=== PATIENT | female | born 1950 | race Caucasian/White ===

== ENCOUNTER → 2018-02-02 09:23 | Outpatient (CLI) | payer MEDICARE, OTHER, SELFPAY ==
--- NOTE | 2018-02-02 | DI.MG.S_ITS ---
BILATERAL DIGITAL SCREENING MAMMOGRAM 3D/2D WITH CAD: 02/02/2018 CLINICAL: Routine screening. Comparison is made to exams dated: 01/31/2017 mammogram, 01/27/2016 mammogram, and 01/21/2015 mammogram - [facility]. The tissue of both breasts is extremely dense, which lowers the sensitivity of mammography. Current study was also evaluated with a Computer Aided Detection (CAD) system. No significant masses, calcifications, or other findings are seen in either breast. There has been no significant interval change. IMPRESSION: NEGATIVE There is no mammographic evidence of malignancy. A 1 year screening mammogram is recommended.(02/03/2019) This exam was interpreted at Station ID: [id number]. NOTE: For mammograms, a report in lay terms will be sent to the patient. Approximately 15% of breast malignancies will not be visualized mammographically. In the management of a palpable breast mass, a negative mammogram must not discourage biopsy of a clinically suspicious lesion. Electronically Signed By: Vikram mace/sukhwinder:02/02/2018 10:42:12 letter sent: Normal Exam ACR BI-RADS Category 1: Negative 3341F
== END ==
PROVIDERS: PCP Family Medicine; Visit Provider Family Medicine
DX: Z12.31 Encounter for screening mammogram for malignant neoplasm of breast (principal); M85.852 Other specified disorders of bone density and structure, left thigh; Z78.0 Asymptomatic menopausal state; Z82.62 Family history of osteoporosis
CPT/HCPCS: 77063; 77067; 77080

== ENCOUNTER → 2018-06-15 11:45 | Outpatient (CLI) | payer MEDICARE, OTHER, SELFPAY | PROVIDERS: PCP Family Medicine; Visit Provider Surgery | DX: Z01.818 Encounter for other preprocedural examination (principal) | CPT/HCPCS: 93005 ==

== ENCOUNTER 2018-06-26 06:32 | Day surgery (SDC) | payer MEDICARE, OTHER, SELFPAY ==
--- NOTE | 2018-06-26 | PATH_ITS ---
[facility] Accession Number: [id number] . 01 Material submitted: . PART A: TRANSVERSE COLON POLYP AT 90CM PART B: RECTAL POLYP . 02 Diagnosis: A. Biopsy, Polyp Transverse Colon at 90 cm: Tubular adenoma involving both biopsy fragments. . B. Biopsy, Rectal Polyp: Hyperplastic polyp. MRV/06/27/2018 . 02 Electronically signed: . Archie Bonner MD, Pathologist NPI- [id number] . 01 Gross description: . Received two formalin-filled containers, both labeled with the patient's name: . A. In a container labeled transverse colon polyp at 90 cm, the specimen consists of two 0.3-0.4 cm portions of tissue, entirely submitted in cassette A. B. In a container labeled rectal polyp, the specimen consists of a 0.3 cm portion of tissue, entirely submitted in cassette B. ([id number]) /FRR . 02 Pathologist provided ICD-10: D12.3 . 02 CPT . 880880, 851035 Performed at: 01 [facility] [address] [facility], [place], [place] [id number] MD Vikram Araya MD Phone: [phone] Performed at: 02 [facility] [address] [place], [place] [id number] MD Melisa Rosario MD Phone: [phone]
[2018-06-26 07:09] VITALS: BP 133/80; PULSE 90; RESP 15; TEMP 36.6; O2SAT 99; BMI 50.1
[2018-06-26] MEDS: SODIUM CHLORIDE 0.9% 1,000 ML 200 ML IV (07:30)
--- NOTE | 2018-06-26 07:38 | PM.PREOP ---
Pre-operative Note Interval Note History & Physical reviewed/Exam performed by Physician: Yes Changes to H&P: No H&P completed within 30 days and has changed as indicated here:: Patient seen and examined. History and physical examination from June 14, 2018 is on the chart and has not changed. Proceed with colonoscopy and possible hemorrhoid banding today as planned. ASA Class (for procedural sedation): II
[2018-06-26] MEDS: SODIUM CHLORIDE 0.9% 1,000 ML 42 ML IV (08:20)
[2018-06-26] MEDS: fentaNYL 250 MCG/5 ML INJ IV (08:21)
[2018-06-26] MEDS: MIDAZOLAM 5 MG/5 ML VIAL IV (08:21)
--- NOTE | 2018-06-26 08:24 | PM.OP.ENDO ---
Operative Date/Time/Diagnoses Date of procedure: 06/26/18 Time of procedure: 08:24 Pre-op diagnosis: Rectal bleeding Post-op diagnosis: other (Scattered diverticulosis, colon polyps, and grade 2 enlarged internal hemorrhoid) Procedure & Clinicians Study performed: 1. Sedation per surgeon 2. Colonoscopy with cold forceps polypectomies 3. Anoscopy with internal hemorrhoid banding of 1 cushion Same procedure as scheduled: Yes Indications: 68-year-old female who presented with recent rectal bleeding. Colonoscopy and potential hemorrhoid banding was recommended. Surgeon: Maximiliano Moncada Procedure Notes SCOAP/Timeout: Yes Procedure in detail: After obtaining informed consent, the patient was brought to the GI suite and placed in the left lateral decubitus position on the examination table. After placement of appropriate monitors, the patient was given incremental doses of Versed and Fentanyl until an appropriate level of sedation was achieved. A time out was held per SCOAP protocol. A digital rectal examination was performed and did not reveal any masses or obstructing lesions. The colonoscope was gently passed into the patient's anus and the entire colon navigated to the level of the cecum with minimal difficulty. Once in the cecum, the scope was withdrawn being sure to go before and beyond all mucosal folds and prominences and get an excellent examination. The findings are noted above. At the level of the rectal vault, the scope was retroflexed and the internal anal canal was examined. The scope was straightened and air aspirated from the colon. The instrument was removed from the patient's body and this portion of the procedure was concluded. Anoscope was then inserted and the anal canal was examined circumferentially. A grade 2 enlarged mildly inflamed right anterior internal hemorrhoid cushion was identified. Therefore the hemorrhoid was secured with the curved Allis clamp and 2 bands were deployed without difficulty. Hemostasis was verified. Patient tolerated the procedure well. The patient was allowed to awaken from sedation without difficulty and taken to the post-anesthesia care unit in good condition. Scope withdrawal time: 14:38 min Sedation minutes: 44 Findings: diverticulosis, internal hemorrhoids (See above), polyp and other findings (Extremely redundant and tortuous colon but excellent bowel preparation) Specimen(s): other (1. Transverse colon polyp at 90 cm 2. Rectal polyp) Complications: none Recommendations: Colonscopy in 5 years, High fiber diet and Will call with biopsy results Follow up: weeks (2-[address] Moncada) Disposition: PACU
[2018-06-26 08:27] VITALS: BP 105/61; PULSE 75; RESP 16; TEMP 37.1; O2SAT 97
[2018-06-26 08:31] VITALS: BP 120/67; PULSE 76; RESP 15; TEMP 36.9; O2SAT 98
[2018-06-26 08:35] VITALS: BP 116/69; PULSE 76; RESP 15; TEMP 36.8; O2SAT 98
== END 2018-06-26 08:52 | disposition home or self-care (01) ==
PROVIDERS: PCP Family Medicine; Visit Provider Surgery
PROC: 0DJD8ZZ Inspection of Lower Intestinal Tract, Via Natural or Artificial Opening Endoscopic (ICD-10-PCS; CPT 45378; principal; 2018-06-26 07:45)
DX: K62.5 Hemorrhage of anus and rectum (principal); E78.5 Hyperlipidemia, unspecified; D12.3 Benign neoplasm of transverse colon; K62.1 Rectal polyp; K57.30 Diverticulosis of large intestine without perforation or abscess without bleeding; K64.1 Second degree hemorrhoids
CPT/HCPCS: 45380; 46221; 88305; 99152; 99153; J2250; J3010

== ENCOUNTER → 2019-02-05 10:37 | Outpatient (CLI) | payer MEDICARE, OTHER, SELFPAY ==
--- NOTE | 2019-02-05 | DI.MG.S_ITS ---
BILATERAL DIGITAL SCREENING MAMMOGRAM 3D/2D WITH CAD: 02/05/2019 CLINICAL: Routine screening. Comparison is made to exams dated: 02/02/2018 mammogram, 01/31/2017 mammogram, and 01/27/2016 mammogram - [facility]. The tissue of both breasts is heterogeneously dense. This may lower the sensitivity of mammography. Current study was also evaluated with a Computer Aided Detection (CAD) system. No significant masses, calcifications, or other findings are seen in either breast. There has been no significant interval change. IMPRESSION: NEGATIVE There is no mammographic evidence of malignancy. A 1 year screening mammogram is recommended. This exam was interpreted at Station ID: [id number]. NOTE: For mammograms, a report in lay terms will be sent to the patient. Approximately 15% of breast malignancies will not be visualized mammographically. In the management of a palpable breast mass, a negative mammogram must not discourage biopsy of a clinically suspicious lesion. Electronically Signed By: Chet atkinson/sukhwinder:02/05/2019 11:35:28 letter sent: Normal Exam ACR BI-RADS Category 1: Negative 3341F
== END ==
PROVIDERS: PCP Family Medicine; Visit Provider Family Medicine
DX: Z12.31 Encounter for screening mammogram for malignant neoplasm of breast (principal)
CPT/HCPCS: 77063; 77067

== ENCOUNTER → 2020-02-08 10:05 | Outpatient (CLI) | payer MEDICARE, OTHER, SELFPAY ==
--- NOTE | 2020-02-08 | DI.MG.S_ITS ---
BILATERAL DIGITAL SCREENING MAMMOGRAM 3D/2D WITH CAD: 02/08/2020 CLINICAL: Routine screening. Comparison is made to exams dated: 02/05/2019 mammogram, 02/02/2018 mammogram, and 01/31/2017 mammogram - [facility]. The tissue of both breasts is heterogeneously dense. This may lower the sensitivity of mammography. Current study was also evaluated with a Computer Aided Detection (CAD) system. No significant masses, calcifications, or other findings are seen in either breast. There has been no significant interval change. IMPRESSION: NEGATIVE There is no mammographic evidence of malignancy. A 1 year screening mammogram is recommended. This exam was interpreted at Station ID: [id number]. NOTE: For mammograms, a report in lay terms will be sent to the patient. Approximately 15% of breast malignancies will not be visualized mammographically. In the management of a palpable breast mass, a negative mammogram must not discourage biopsy of a clinically suspicious lesion. Electronically Signed By: Ginny mckee/sukhwinder:02/08/2020 11:22:15 letter sent: Normal Exam ACR BI-RADS Category 1: Negative 3341F
== END ==
PROVIDERS: PCP Family Medicine; Referring Provider Family Medicine; Visit Provider Family Medicine
DX: Z12.31 Encounter for screening mammogram for malignant neoplasm of breast (principal)
CPT/HCPCS: 77063; 77067

== ENCOUNTER → 2021-06-08 11:29 | Outpatient (CLI) | payer MEDICARE, OTHER, SELFPAY ==
--- NOTE | 2021-06-08 | DI.MG.S_ITS ---
BILATERAL DIGITAL SCREENING MAMMOGRAM 3D/2D WITH CAD: 06/08/2021 CLINICAL: Routine screening. Comparison is made to exams dated: 02/08/2020 mammogram, 02/05/2019 mammogram, and 02/02/2018 mammogram - [facility]. The tissue of both breasts is heterogeneously dense. This may lower the sensitivity of mammography. Current study was also evaluated with a Computer Aided Detection (CAD) system. No significant masses, calcifications, or other findings are seen in either breast. There has been no significant interval change. IMPRESSION: NEGATIVE There is no mammographic evidence of malignancy. A 1 year screening mammogram is recommended. This exam was interpreted at Station ID: [id number]. NOTE: For mammograms, a report in lay terms will be sent to the patient. Approximately 15% of breast malignancies will not be visualized mammographically. In the management of a palpable breast mass, a negative mammogram must not discourage biopsy of a clinically suspicious lesion. Electronically Signed By: Preston montilla/sukhwinder:06/08/2021 12:07:15 letter sent: Normal Exam ACR BI-RADS Category 1: Negative 3341F
== END ==
PROVIDERS: PCP Family Medicine; Referring Provider Family Medicine; Visit Provider Family Medicine
DX: Z12.31 Encounter for screening mammogram for malignant neoplasm of breast (principal)
CPT/HCPCS: 77063; 77067

== ENCOUNTER → 2022-06-14 09:49 | Outpatient (CLI) | payer MEDICARE, OTHER, SELFPAY ==
--- NOTE | 2022-06-14 | DI.MG.S_ITS ---
BILATERAL DIGITAL SCREENING MAMMOGRAM 3D/2D WITH CAD: 06/14/2022 CLINICAL: Routine screening. Comparison is made to exams dated: 06/08/2021 mammogram, 02/08/2020 mammogram, and 02/05/2019 mammogram - [facility]. Both breasts are heterogeneously dense, which may obscure small masses (category c / 51-75% glandular tissue). Current study was also evaluated with a Computer Aided Detection (CAD) system. No significant masses, calcifications, or other findings are seen in either breast. There has been no significant interval change. IMPRESSION: NEGATIVE There is no mammographic evidence of malignancy. A 1 year screening mammogram is recommended. Based on the Tyrer Cuzick model (a risk assessment model) the patient's lifetime risk is 8.5% and her 10 year risk is 7.0%. According to the ACR, ACS, and NCCN guidelines, an annual breast MRI exam along with mammogram is recommended if the patient's lifetime risk is 20% or greater. This exam was interpreted at Station ID: [id number]. NOTE: For mammograms, a report in lay terms will be sent to the patient. Approximately 15% of breast malignancies will not be visualized mammographically. In the management of a palpable breast mass, a negative mammogram must not discourage biopsy of a clinically suspicious lesion. Electronically Signed By: Therese del angel/sukhwinder:06/14/2022 15:02:54 letter sent: Normal Exam ACR BI-RADS Category 1: Negative 3341F
== END ==
PROVIDERS: PCP Family Medicine; Referring Provider Family Medicine; Visit Provider Family Medicine
DX: Z12.31 Encounter for screening mammogram for malignant neoplasm of breast (principal)
CPT/HCPCS: 77063; 77067

== ENCOUNTER → 2023-06-17 09:50 | Outpatient (CLI) | payer MEDICARE, OTHER, SELFPAY ==
--- NOTE | 2023-06-17 09:53 | DI.MG.S_ITS ---
BILATERAL DIGITAL SCREENING MAMMOGRAM 3D/2D WITH CAD: 06/17/2023 CLINICAL: Routine screening. Comparison is made to exams dated: 06/14/2022 mammogram, 06/08/2021 mammogram, and 02/08/2020 mammogram - [facility]. Both breasts are heterogeneously dense, which may obscure small masses (category c / 51-75% glandular tissue). Current study was also evaluated with a Computer Aided Detection (CAD) system. No significant masses, calcifications, or other findings are seen in either breast. There has been no significant interval change. IMPRESSION: NEGATIVE There is no mammographic evidence of malignancy. A 1 year screening mammogram is recommended. Based on the Tyrer Cuzick model (a risk assessment model) the patient's lifetime risk is 7.9% and her 10 year risk is 7.2%. According to the ACR, ACS, and NCCN guidelines, an annual breast MRI exam along with mammogram is recommended if the patient's lifetime risk is 20% or greater. This exam was interpreted at Station ID: [id number]. NOTE: For mammograms, a report in lay terms will be sent to the patient. Approximately 15% of breast malignancies will not be visualized mammographically. In the management of a palpable breast mass, a negative mammogram must not discourage biopsy of a clinically suspicious lesion. Electronically Signed By: Owen cárdenas/sukhwinder:06/17/2023 12:39:32 letter sent: Normal Exam ACR BI-RADS Category 1: Negative 3341F
== END ==
LOC: MAMMO 09:52
PROVIDERS: PCP Family Medicine; Referring Provider Family Medicine; Visit Provider Family Medicine
DX: Z12.31 Encounter for screening mammogram for malignant neoplasm of breast (principal); R92.333 Mammographic heterogeneous density, bilateral breasts
CPT/HCPCS: 77063; 77067

== ENCOUNTER → 2024-06-18 09:08 | Outpatient (CLI) | payer MEDICARE, OTHER, SELFPAY ==
--- NOTE | 2024-06-18 09:10 | DI.RAD.S_ITS ---
PROCEDURE: XR DEXA AXIAL SKELETON INDICATIONS: OSTEOPOROSIS SCREENING COMPARISON: [facility], CR, XR DEXA AXIAL SKELETON, 02/02/2018, 10:15. FINDINGS: Lumbar Spine: Bone mineral density 0.944 g/cm2, T score -0.9. Prior DEXA was performed using dissimilar scan type or analysis method. Left Femoral Neck: Bone mineral density 0.605 g/cm2, T score -2.2. Left Hip: Bone mineral density 0.747 g/cm2, T score -1.6. Prior DEXA was performed using dissimilar scan type or analysis method. Fracture Risk Calculation (when applicable): 10-year fracture risk of a major osteoporotic fracture 25 % and of a hip fracture 15 %. (T score greater or equal to -1.0 to: NORMAL) (T score from -1.1 to -2.4: OSTEOPENIA) (T score less than or equal to -2.5: OSTEOPOROSIS) IMPRESSION: 1. By WHO criteria, patient has osteopenia. 2. Elevated 10 year fracture risk. Follow-up guidelines as follows: Osteoporosis: Consider a repeat DEXA and Vertebral Fracture Assessment (VFA) exam in 2 years or sooner if medically necessary, to reassess this patient's status. Osteopenia: Consider a repeat DEXA in 2-3 years to reassess this patient's status, or if there is a new clinical indication. Normal: Consider a repeat DEXA in 5 years or sooner, or if there is a new clinical indication. All treatment decisions require clinical judgment and consideration of individual patient factors, including patient preferences, comorbidities, previous drug use, risk factors not captured in the FRAX model (e.g., frailty, falls, vitamin D deficiency, increased bone turnover, interval significant decline in bone density ) and possible under- or over-estimation of fracture risk by FRAX. In addition, the NOF Guide recommends that FDA-approved medical therapies be considered in postmenopausal women and men age >= 50 years with a: * Hip or vertebral (clinical or morphometric) fracture * T-score of <=-2.5 at the spine or hip * Ten-year fracture probability by FRAX of >= 3% for hip fracture or >=20% for major osteoporotic fracture. Approved by: Preston Mariee M.D. on 06/18/2024 at 20:26
--- NOTE | 2024-06-18 09:10 | DI.MG.S_ITS ---
BILATERAL DIGITAL SCREENING MAMMOGRAM 3D/2D WITH CAD: 06/18/2024 CLINICAL: Routine screening. Comparison is made to exams dated: 06/17/2023 mammogram, 06/14/2022 mammogram, and 06/08/2021 mammogram - [facility]. The breasts are heterogeneously dense, which may obscure small masses (category c / 51-75% glandular tissue). Current study was also evaluated with a Computer Aided Detection (CAD) system. No significant masses, calcifications, or other findings are seen in either breast. There has been no significant interval change. IMPRESSION: NEGATIVE There is no mammographic evidence of malignancy. A 1 year screening mammogram is recommended. Based on the Tyrer Cuzick model (a risk assessment model) the patient's lifetime risk is 7.4% and her 10 year risk is 7.4%. According to the ACR, ACS, and NCCN guidelines, an annual breast MRI exam along with mammogram is recommended if the patient's lifetime risk is 20% or greater. This exam was interpreted at Station ID: [id number]. NOTE: For mammograms, a report in lay terms will be sent to the patient. Approximately 15% of breast malignancies will not be visualized mammographically. In the management of a palpable breast mass, a negative mammogram must not discourage biopsy of a clinically suspicious lesion. Electronically Signed By: Chet atkinson/sukhwinder:06/18/2024 16:33:39 letter sent: Normal Exam ACR BI-RADS Category 1: Negative
== END ==
PROVIDERS: PCP Family Medicine; Referring Provider Family Medicine; Visit Provider Family Medicine
DX: Z12.31 Encounter for screening mammogram for malignant neoplasm of breast (principal); R92.333 Mammographic heterogeneous density, bilateral breasts; M81.0 Age-related osteoporosis without current pathological fracture
CPT/HCPCS: 77063; 77067; 77080